=== PATIENT | male | born 1995 | race African-American/Black ===

== ENCOUNTER 2021-06-24 18:00 | Emergency (ER) | payer MEDICAID ==
[2021-06-24] VITALS (16 sets, daily range): BP systolic 95–123; BP diastolic 57–74
[~2021-06-24] VITALS: Ht 157.5 cm; Wt 38.0 kg
[2021-06-24 18:32] LABS: HEMATOCRIT 41.8 % (39.0-50.0); HEMOGLOBIN 12.3 g/dl (14.0-18.0); IMMATURE GRANULOCYTES 0.1 % (0.0-5.0); MEAN CELL VOLUME 91.5 fL CALC (80.0-100.0); MEAN CORPUSCULAR HGB 26.9 pG CALC (26.0-32.0); MEAN CORPUSCULAR HGB CONC 29.4 g/dL CAL (32.0-36.0); NEUT# 5.93 thou/uL (1.82-7.42); RED BLOOD COUNT 4.57 mill/uL (4.70-6.10); RED CELL DISTRI WIDTH 14.2 % (11.5-15.5)
[2021-06-24 19:00] LABS: ANION GAP 9 (6-22 (CALC)); BUN 18 mg/dL (9-20); BUN/CREATININE RATIO 36 (12-20 (CALC)); CHLORIDE 96 mmol/l (95-108); CREATININE 0.5 mg/dL (0.7-1.3); GFR > 60 ML/MIN (>=60 (CALC)); GFR FOR AFR.AMER. > 60 ML/MIN (>=60 (CALC)); POTASSIUM 4.4 mmol/l (3.5-5.1); SODIUM 140 mmol/l (137-146)
[2021-06-24 19:06] LABS: CARBON DIOXIDE 39 mmol/l (22-30)
[2021-06-24] MEDS ORDERED: NAPROXEN500 MG PO (21:31)
== END 2021-06-24 21:38 | disposition home or self-care (01) ==
LOC: ED 18:00 → EDBD 18:00 → ED 18:31
PROVIDERS: Family Medicine
DX: S83.014A Lateral dislocation of right patella, initial encounter (principal); J98.4 Other disorders of lung; X50.0XXA Overexertion from strenuous movement or load, initial encounter; Y93.41 Activity, dancing
CPT/HCPCS: L1830

== ENCOUNTER 2022-05-29 23:39 | Inpatient (IN) | payer MEDICAID ==
[~2022-05-29] VITALS: Ht 157.5 cm; Wt 40.0 kg
[~2022-05-29 23:39] MED LIST: NAPROXEN500 MG PO
[2022-05-29 23:45] VITALS: BP 120/76
[2022-05-30] VITALS (34 sets, daily range): BP systolic 82–136; BP diastolic 44–78
[2022-05-30 00:29] LABS: BASO% 0.3 % (0-3); EOS% 2.8 % (0-8); HEMATOCRIT 46.9 % (39.0-50.0); HEMOGLOBIN 13.5 g/dl (14.0-18.0); IMMATURE GRANULOCYTES 0.6 % (0.0-5.0); LYMPH% 12.7 % (15-41); MEAN CELL VOLUME 92.9 fL CALC (80.0-100.0); MEAN CORPUSCULAR HGB 26.7 pG CALC (26.0-32.0); MEAN CORPUSCULAR HGB CONC 28.8 g/dL CAL (32.0-36.0); MONO% 9.6 % (2-13); NEUT# 6.97 thou/uL (1.82-7.42); RED BLOOD COUNT 5.05 mill/uL (4.70-6.10); RED CELL DISTRI WIDTH 13.9 % (11.5-15.5)
[2022-05-30 00:43] LABS: ALBUMIN 4.7 g/dL (3.2-5.0); ALKALINE PHOSPHATASE 102 u/l (38-126); BUN 23 mg/dL (9-20); BUN/CREATININE RATIO 28 (12-20 (CALC)); CHLORIDE 90 mmol/l (95-108); CREATININE 0.8 mg/dL (0.7-1.3); GFR FOR AFR.AMER. > 60 ML/MIN (>=60 (CALC)); GFR OTHER RACES > 60 ML/MIN (>=60 (CALC)); POTASSIUM 4.7 mmol/l (3.5-5.1); SGOT/AST 51 u/l (17-59); SODIUM 140 mmol/l (137-146); TOTAL PROTEIN 7.7 g/dL (6.3-8.2)
[2022-05-30 00:52] LABS: ANION GAP 8 (6-22 (CALC)); CARBON DIOXIDE 47 mmol/l (22-30)
[2022-05-31 05:57] LABS: HEMATOCRIT 41.4 % (39.0-50.0); MEAN CORPUSCULAR HGB 26.7 pG CALC (26.0-32.0); RED BLOOD COUNT 4.5 mill/uL (4.70-6.10)
[2022-05-31 06:54] LABS: ALKALINE PHOSPHATASE 69 u/l (38-126); BUN 18 mg/dL (9-20); BUN/CREATININE RATIO 34 (12-20 (CALC)); CHLORIDE 94 mmol/l (95-108); CREATININE 0.5 mg/dL (0.7-1.3); GFR FOR AFR.AMER. > 60 ML/MIN (>=60 (CALC)); GFR OTHER RACES > 60 ML/MIN (>=60 (CALC)); POTASSIUM 4.8 mmol/l (3.5-5.1); SGOT/AST 66 u/l (17-59); SODIUM 136 mmol/l (137-146); TOTAL PROTEIN 6.6 g/dL (6.3-8.2)
[2022-05-31 07:10] LABS: ANION GAP 7 (6-22 (CALC)); BILIRUBIN, TOTAL 0.2 mg/dL (0.2-1.3)
[2022-05-31 07:11] LABS: CARBON DIOXIDE 40 mmol/l (22-30)
[2022-05-31 12:32] VITALS: BP 101/66
[2022-05-31 18:52] VITALS: BP 114/71
[2022-05-31 23:51] VITALS: BP 93/55
[2022-06-01 06:09] LABS: HEMATOCRIT 40.9 % (39.0-50.0); HEMOGLOBIN 12.2 g/dl (14.0-18.0); MEAN CELL VOLUME 89.9 fL CALC (80.0-100.0); MEAN CORPUSCULAR HGB 26.8 pG CALC (26.0-32.0); MEAN CORPUSCULAR HGB CONC 29.8 g/dL CAL (32.0-36.0); RED BLOOD COUNT 4.55 mill/uL (4.70-6.10); RED CELL DISTRI WIDTH 14.3 % (11.5-15.5)
[2022-06-01 06:26] LABS: ALKALINE PHOSPHATASE 57 u/l (38-126); BILIRUBIN, TOTAL 0.2 mg/dL (0.2-1.3); BUN 20 mg/dL (9-20); BUN/CREATININE RATIO 34 (12-20 (CALC)); CHLORIDE 92 mmol/l (95-108); CREATININE 0.6 mg/dL (0.7-1.3); GFR FOR AFR.AMER. > 60 ML/MIN (>=60 (CALC)); GFR OTHER RACES > 60 ML/MIN (>=60 (CALC)); MAGNESIUM 2.1 mg/dL (1.6-2.3); POTASSIUM 4.5 mmol/l (3.5-5.1); SGOT/AST 33 u/l (17-59); SODIUM 137 mmol/l (137-146); TOTAL PROTEIN 6.6 g/dL (6.3-8.2)
[2022-06-01 06:33] LABS: ANION GAP 11 (6-22 (CALC)); CARBON DIOXIDE 39 mmol/l (22-30)
[2022-06-01] MEDS ORDERED: PREDNISONE10 MG PO (10:02)
[2022-06-01] MEDS ORDERED: ZITHROMAX250 MG PO (10:02)
== END 2022-06-01 11:00 | disposition home or self-care (01) | DRG 208 ==
LOC: EDBD 23:39 → ED 23:39 → EDBD 23:49 → ED 23:49 → ED-I 23:49 → ED 05-30 01:29 → ED-I 05-30 01:30 → ICU 05-30 06:30
PROVIDERS: Emergency Medicine; Internal Medicine; ADMIT Internal Medicine; ATTEND Internal Medicine
PROC: 5A1945Z Respiratory Ventilation, 24-96 Consecutive Hours (ICD-10-PCS; principal; 2022-05-30)
DX: J96.21 Acute and chronic respiratory failure with hypoxia (principal); E87.29 Other acidosis; F84.0 Autistic disorder; G93.1 Anoxic brain damage, not elsewhere classified; Q21.12 Patent foramen ovale; J96.22 Acute and chronic respiratory failure with hypercapnia; J45.909 Unspecified asthma, uncomplicated; F79 Unspecified intellectual disabilities; Q33.8 Other congenital malformations of lung; Z93.1 Gastrostomy status; Z20.822 Contact with and (suspected) exposure to COVID-19

== ENCOUNTER 2022-06-18 22:35 | Observation (INO) | payer MEDICAID ==
[~2022-06-18] VITALS: Ht 157.5 cm; Wt 41.0 kg
[2022-06-18] VITALS (7 sets, daily range): BP systolic 47–125; BP diastolic 32–78
[~2022-06-18 22:35] MED LIST changes: +PREDNISONE10 MG PO; +ZITHROMAX250 MG PO
[2022-06-18 23:14] LABS: BASO% 0.3 % (0-3); HEMOGLOBIN 14.1 g/dl (14.0-18.0); IMMATURE GRANULOCYTES 0.1 % (0.0-5.0); LYMPH% 8.2 % (15-41); MEAN CELL VOLUME 91.9 fL CALC (80.0-100.0); MEAN CORPUSCULAR HGB 27.3 pG CALC (26.0-32.0); MEAN CORPUSCULAR HGB CONC 29.7 g/dL CAL (32.0-36.0); MONO% 9.4 % (2-13); NEUT# 7.38 thou/uL (1.82-7.42); RED BLOOD COUNT 5.16 mill/uL (4.70-6.10); RED CELL DISTRI WIDTH 14.3 % (11.5-15.5)
[2022-06-18 23:22] LABS: HEMATOCRIT 47.4 % (39.0-50.0)
[2022-06-18 23:27] LABS: ANION GAP 11 (6-22 (CALC)); BILIRUBIN, TOTAL 0.2 mg/dL (0.2-1.3); BUN 24 mg/dL (9-20); BUN/CREATININE RATIO 28 (12-20 (CALC)); CARBON DIOXIDE 37 mmol/l (22-30); CHLORIDE 96 mmol/l (95-108); CREATININE 0.9 mg/dL (0.7-1.3); GFR FOR AFR.AMER. > 60 ML/MIN (>=60 (CALC)); GFR OTHER RACES > 60 ML/MIN (>=60 (CALC)); POTASSIUM 4.4 mmol/l (3.5-5.1); SGOT/AST 51 u/l (17-59); SODIUM 139 mmol/l (137-146); TOTAL PROTEIN 7.9 g/dL (6.3-8.2)
[2022-06-18 23:29] LABS: ALBUMIN 4.9 g/dL (3.2-5.0); ALKALINE PHOSPHATASE 108 u/l (38-126)
[2022-06-19] VITALS (29 sets, daily range): BP systolic 56–111; BP diastolic 38–75
[2022-06-20 05:33] LABS: ALKALINE PHOSPHATASE 62 u/l (38-126); ANION GAP 6 (6-22 (CALC)); BILIRUBIN, TOTAL 0.7 mg/dL (0.2-1.3); BUN 18 mg/dL (9-20); BUN/CREATININE RATIO 36 (12-20 (CALC)); CARBON DIOXIDE 30 mmol/l (22-30); CHLORIDE 104 mmol/l (95-108); CREATININE 0.5 mg/dL (0.7-1.3); GFR FOR AFR.AMER. > 60 ML/MIN (>=60 (CALC)); GFR OTHER RACES > 60 ML/MIN (>=60 (CALC)); POTASSIUM 3.7 mmol/l (3.5-5.1); SGOT/AST 51 u/l (17-59); SODIUM 136 mmol/l (137-146); TOTAL PROTEIN 5.4 g/dL (6.3-8.2)
[2022-06-20 06:28] VITALS: BP 101/64
[2022-06-20 06:30] LABS: BASO% 0.4 % (0-3); HEMATOCRIT 43.5 % (39.0-50.0); HEMOGLOBIN 12.6 g/dl (14.0-18.0); IMMATURE GRANULOCYTES 0.1 % (0.0-5.0); LYMPH% 21.2 % (15-41); MEAN CELL VOLUME 91.8 fL CALC (80.0-100.0); MEAN CORPUSCULAR HGB 26.6 pG CALC (26.0-32.0); MONO% 8.5 % (2-13); NEUT# 7.25 thou/uL (1.82-7.42); NEUT% 68.8 % (42-76); RED BLOOD COUNT 4.74 mill/uL (4.70-6.10); RED CELL DISTRI WIDTH 14.3 % (11.5-15.5)
[2022-06-20 07:00] VITALS: BP 94/64
[2022-06-20 08:00] VITALS: BP 85/51
[2022-06-20 08:04] VITALS: BP 89/57
[2022-06-20 08:29] VITALS: BP 104/67
== END 2022-06-20 13:10 | disposition home or self-care (01) ==
LOC: ED 22:35 → ICU 23:57
PROVIDERS: Family Medicine; ADMIT Internal Medicine; ATTEND Internal Medicine
DX: J96.22 Acute and chronic respiratory failure with hypercapnia (principal); J96.21 Acute and chronic respiratory failure with hypoxia; F79 Unspecified intellectual disabilities; E87.29 Other acidosis; G93.1 Anoxic brain damage, not elsewhere classified; J45.909 Unspecified asthma, uncomplicated; F84.0 Autistic disorder; Q21.12 Patent foramen ovale; Z93.1 Gastrostomy status; Z20.822 Contact with and (suspected) exposure to COVID-19

== ENCOUNTER 2022-07-09 21:58 | Emergency (ER) | payer MEDICAID ==
[2022-07-09] VITALS (11 sets, daily range): BP systolic 93–117; BP diastolic 60–81
[~2022-07-09] VITALS: Ht 157.5 cm; Wt 37.0 kg
[2022-07-09 22:42] LABS: BASO% 0.4 % (0-3); EOS% 1.8 % (0-8); HEMATOCRIT 49.1 % (39.0-50.0); IMMATURE GRANULOCYTES 0.3 % (0.0-5.0); MEAN CORPUSCULAR HGB 27.1 pG CALC (26.0-32.0); MEAN CORPUSCULAR HGB CONC 28.5 g/dL CAL (32.0-36.0); MONO% 6.7 % (2-13); NEUT# 11.87 thou/uL (1.82-7.42); NEUT% 81.8 % (42-76); RED BLOOD COUNT 5.17 mill/uL (4.70-6.10); RED CELL DISTRI WIDTH 14.1 % (11.5-15.5)
[2022-07-09 22:53] LABS: ALKALINE PHOSPHATASE 89 u/l (38-126); BUN 21 mg/dL (9-20); BUN/CREATININE RATIO 24 (12-20 (CALC)); CHLORIDE 95 mmol/l (95-108); CREATININE 0.9 mg/dL (0.7-1.3); GFR FOR AFR.AMER. > 60 ML/MIN (>=60 (CALC)); GFR OTHER RACES > 60 ML/MIN (>=60 (CALC)); SGOT/AST 60 u/l (17-59); SODIUM 141 mmol/l (137-146)
[2022-07-09 22:54] LABS: ALBUMIN 4.2 g/dL (3.2-5.0); ANION GAP 12 (6-22 (CALC)); BILIRUBIN, TOTAL 0.3 mg/dL (0.2-1.3); CARBON DIOXIDE 39 mmol/l (22-30); POTASSIUM 4.9 mmol/l (3.5-5.1); TOTAL PROTEIN 6.8 g/dL (6.3-8.2)
[2022-07-09 23:42] LABS: URINE BILIRUBIN - DIPSTICK NEGATIVE (NEGATIVE); URINE BLOOD DIPSTICK TRACE-INTACT (NEGATIVE); URINE COLOR YELLOW; URINE GLUCOSE - DIPSTICK NEGATIVE (NEGATIVE); URINE KETONE NEGATIVE (NEGATIVE); URINE LEUK ESTERASE NEGATIVE (NEGATIVE); URINE PH 5.5 (4.5-8.0); URINE PROTEIN - DIPSTICK 100 mg/dL (NEG-TRACE); URINE SPECIFIC GRAVITY >=1.030; URINE UROBILINOGEN - DIPSTICK 0.2 E.U./dL (0.2)
[2022-07-09 23:49] LABS: URINE NITRITE - DIPSTICK NEGATIVE (Negative)
[2022-07-09 23:50] LABS: URINE BACTERIA FEW hpf; URINE EPITHELIAL CELLS MODERATE EPI/hpf (0-FEW); URINE MUCUS MODERATE hpf (NONE-FEW); URINE URIC ACID CRYSTALS FEW lpf
[2022-07-09 23:51] LABS: URINE AMORPH SEDIMENT FEW hpf (NONE-FER); URINE COARSE GRANULAR CAST FEW lpf; URINE FINE GRAN CAST FEW lpf
[2022-07-10] VITALS (22 sets, daily range): BP systolic 101–129; BP diastolic 67–91
== END 2022-07-10 02:03 | disposition short-term general hospital (02) ==
LOC: ED 21:58
PROVIDERS: Emergency Medicine
DX: J96.02 Acute respiratory failure with hypercapnia (principal); E87.29 Other acidosis; G93.1 Anoxic brain damage, not elsewhere classified; F84.0 Autistic disorder; Q21.12 Patent foramen ovale; J45.909 Unspecified asthma, uncomplicated; Z20.822 Contact with and (suspected) exposure to COVID-19

== ENCOUNTER 2022-09-10 17:29 | Inpatient (IN) | payer MEDICAID ==
[~2022-09-10] VITALS: Ht 157.5 cm; Wt 41.3 kg
[2022-09-10] VITALS (12 sets, daily range): BP systolic 88–140; BP diastolic 52–122
[2022-09-10 18:15] LABS: BASO% 0.4 % (0-3); EOS% 5.7 % (0-8); HEMATOCRIT 44.2 % (39.0-50.0); HEMOGLOBIN 12.7 g/dl (14.0-18.0); IMMATURE GRANULOCYTES 0.2 % (0.0-5.0); LYMPH% 14.6 % (15-41); MEAN CORPUSCULAR HGB CONC 28.7 g/dL CAL (32.0-36.0); MONO% 7.2 % (2-13); NEUT# 11.89 thou/uL (1.82-7.42); NEUT% 71.9 % (42-76); RED BLOOD COUNT 4.7 mill/uL (4.70-6.10); RED CELL DISTRI WIDTH 14.4 % (11.5-15.5)
[2022-09-10 18:29] LABS: ALBUMIN 4.6 g/dL (3.2-5.0); ALKALINE PHOSPHATASE 114 u/l (38-126); ANION GAP 14 (6-22 (CALC)); BILIRUBIN, TOTAL 0.3 mg/dL (0.2-1.3); BUN 17 mg/dL (9-20); BUN/CREATININE RATIO 21 (12-20 (CALC)); CARBON DIOXIDE 36 mmol/l (22-30); CHLORIDE 95 mmol/l (95-108); CREATININE 0.8 mg/dL (0.7-1.3); GFR FOR AFR.AMER. > 60 ML/MIN (>=60 (CALC)); GFR OTHER RACES > 60 ML/MIN (>=60 (CALC)); POTASSIUM 4.6 mmol/l (3.5-5.1); SGOT/AST 33 u/l (17-59); SODIUM 141 mmol/l (137-146)
[2022-09-10 18:30] LABS: TOTAL PROTEIN 8.4 g/dL (6.3-8.2)
[2022-09-11] VITALS (46 sets, daily range): BP systolic 55–134; BP diastolic 40–96
[2022-09-11 06:48] LABS: BASO% 0.2 % (0-3); HEMATOCRIT 38.6 % (39.0-50.0); HEMOGLOBIN 11.1 g/dl (14.0-18.0); IMMATURE GRANULOCYTES 0.1 % (0.0-5.0); LYMPH% 8.9 % (15-41); MEAN CELL VOLUME 95.1 fL CALC (80.0-100.0); MEAN CORPUSCULAR HGB 27.3 pG CALC (26.0-32.0); MEAN CORPUSCULAR HGB CONC 28.8 g/dL CAL (32.0-36.0); MONO% 3.6 % (2-13); NEUT# 7.59 thou/uL (1.82-7.42); NEUT% 87.2 % (42-76); RED BLOOD COUNT 4.06 mill/uL (4.70-6.10); RED CELL DISTRI WIDTH 14.4 % (11.5-15.5)
[2022-09-11 07:02] LABS: ALBUMIN 4.1 g/dL (3.2-5.0); ALKALINE PHOSPHATASE 66 u/l (38-126); BILIRUBIN, TOTAL 0.4 mg/dL (0.2-1.3); BUN 11 mg/dL (9-20); BUN/CREATININE RATIO 25 (12-20 (CALC)); CARBON DIOXIDE 38 mmol/l (22-30); CHLORIDE 95 mmol/l (95-108); CREATININE 0.4 mg/dL (0.7-1.3); GFR FOR AFR.AMER. > 60 ML/MIN (>=60 (CALC)); GFR OTHER RACES > 60 ML/MIN (>=60 (CALC)); SGOT/AST 35 u/l (17-59); SODIUM 138 mmol/l (137-146); TOTAL PROTEIN 7.9 g/dL (6.3-8.2)
[2022-09-11 07:03] LABS: ANION GAP 10 (6-22 (CALC)); POTASSIUM 5.2 mmol/l (3.5-5.1)
[2022-09-12] VITALS (73 sets, daily range): BP systolic 73–139; BP diastolic 41–95
[2022-09-13] VITALS (15 sets, daily range): BP systolic 81–133; BP diastolic 45–79
[2022-09-13 06:01] LABS: HEMATOCRIT 37.4 % (39.0-50.0); MEAN CELL VOLUME 92.1 fL CALC (80.0-100.0); MEAN CORPUSCULAR HGB 27.1 pG CALC (26.0-32.0); MEAN CORPUSCULAR HGB CONC 29.4 g/dL CAL (32.0-36.0); RED BLOOD COUNT 4.06 mill/uL (4.70-6.10); RED CELL DISTRI WIDTH 14.1 % (11.5-15.5)
[2022-09-13 06:17] LABS: ALBUMIN 3.9 g/dL (3.2-5.0); ALKALINE PHOSPHATASE 68 u/l (38-126); BILIRUBIN, TOTAL 0.5 mg/dL (0.2-1.3); BUN 21 mg/dL (9-20); BUN/CREATININE RATIO 34 (12-20 (CALC)); CHLORIDE 93 mmol/l (95-108); CREATININE 0.6 mg/dL (0.7-1.3); GFR FOR AFR.AMER. > 60 ML/MIN (>=60 (CALC)); GFR OTHER RACES > 60 ML/MIN (>=60 (CALC)); MAGNESIUM 1.9 mg/dL (1.6-2.3); POTASSIUM 4.3 mmol/l (3.5-5.1); SGOT/AST 28 u/l (17-59); SODIUM 139 mmol/l (137-146)
[2022-09-13 06:23] LABS: ANION GAP 12 (6-22 (CALC)); CARBON DIOXIDE 38 mmol/l (22-30)
[2022-09-13] MEDS ORDERED: PREDNISONE10 MG VT (09:30)
== END 2022-09-13 11:42 | disposition home or self-care (01) | DRG 208 ==
LOC: ED 17:29 → ED-I 19:12 → ICU 09-13 02:00
PROVIDERS: Family Medicine; Internal Medicine; ADMIT Internal Medicine; ATTEND Internal Medicine
PROC: 5A1945Z Respiratory Ventilation, 24-96 Consecutive Hours (ICD-10-PCS; principal; 2022-09-10)
DX: J96.22 Acute and chronic respiratory failure with hypercapnia (principal); F84.0 Autistic disorder; G93.1 Anoxic brain damage, not elsewhere classified; Q21.12 Patent foramen ovale; Z99.11 Dependence on respirator [ventilator] status; E87.4 Mixed disorder of acid-base balance; J96.21 Acute and chronic respiratory failure with hypoxia; J43.9 Emphysema, unspecified; Z93.0 Tracheostomy status; Z20.822 Contact with and (suspected) exposure to COVID-19

== ENCOUNTER 2022-10-11 11:34 | Emergency (ER) | payer MEDICAID ==
[~2022-10-11] VITALS: Ht 157.5 cm; Wt 42.2 kg
[~2022-10-11 11:34] MED LIST changes: +LEVALBUTER1.25 MG/3 IN; +MEDDOSEPAK PO; +PREDNISONE10 MG VT; +XANAX0.25 MG PO
[2022-10-11 11:47] VITALS: BP 140/86
[2022-10-11 12:00] VITALS: BP 134/83
[2022-10-11 12:15] VITALS: BP 133/83
[2022-10-11 12:30] VITALS: BP 133/83
== END 2022-10-11 12:37 | disposition home or self-care (01) ==
LOC: ED 11:34
DX: Z46.89 Encounter for fitting and adjustment of other specified devices (principal); J45.909 Unspecified asthma, uncomplicated; Q21.12 Patent foramen ovale

== ENCOUNTER 2023-03-07 20:28 | Emergency (ER) | payer MEDICAID ==
[2023-03-07] VITALS (9 sets, daily range): BP systolic 79–117; BP diastolic 42–72
[~2023-03-07] VITALS: Ht 157.5 cm; Wt 56.0 kg
[2023-03-07] MEDS ORDERED: LEVALBUTER1.25 MG/3 IN (21:06)
[2023-03-07 21:10] LABS: BASO% 0.3 % (0-3); EOS% 2.2 % (0-8); HEMATOCRIT 42.9 % (39.0-50.0); HEMOGLOBIN 12.7 g/dl (14.0-18.0); IMMATURE GRANULOCYTES 0.1 % (0.0-5.0); MEAN CELL VOLUME 88.1 fL CALC (80.0-100.0); MEAN CORPUSCULAR HGB 26.1 pG CALC (26.0-32.0); MEAN CORPUSCULAR HGB CONC 29.6 g/dL CAL (32.0-36.0); MONO% 13.8 % (2-13); NEUT# 11.69 thou/uL (1.82-7.42); NEUT% 76.6 % (42-76); RED BLOOD COUNT 4.87 mill/uL (4.70-6.10); RED CELL DISTRI WIDTH 15.7 % (11.5-15.5)
[2023-03-07] MEDS ORDERED: PULMICORT FLE180 MCG IN (21:10)
[2023-03-07] MEDS ORDERED: IPRATROPIU0.5 MG/3 M IN (21:10)
[2023-03-07] MEDS ORDERED: PREDNISONE10 MG PO (21:11)
[2023-03-07] MEDS ORDERED: ALPRAZOLAM0.25 MG PO (21:11)
== END 2023-03-07 22:46 | disposition home or self-care (01) ==
LOC: ED 20:28
PROVIDERS: Family Medicine
DX: R06.02 Shortness of breath (principal); Z43.0 Encounter for attention to tracheostomy; J45.909 Unspecified asthma, uncomplicated; Z99.11 Dependence on respirator [ventilator] status

== ENCOUNTER 2023-03-14 14:06 | Emergency (ER) | payer MEDICAID ==
[~2023-03-14] VITALS: Ht 157.5 cm; Wt 40.0 kg
[~2023-03-14 14:06] MED LIST changes: +ALPRAZOLAM0.25 MG PO; +IPRATROPIU0.5 MG/3 M IN; +PULMICORT FLE180 MCG IN
[2023-03-14 14:14] VITALS: BP 128/78
[2023-03-14 15:14] LABS: BASO% 0.3 % (0-3); EOS% 2.5 % (0-8); HEMATOCRIT 44.7 % (39.0-50.0); HEMOGLOBIN 13.1 g/dl (14.0-18.0); IMMATURE GRANULOCYTES 0.2 % (0.0-5.0); LYMPH% 8.7 % (15-41); MEAN CELL VOLUME 88.9 fL CALC (80.0-100.0); MEAN CORPUSCULAR HGB CONC 29.3 g/dL CAL (32.0-36.0); MONO% 9.2 % (2-13); NEUT# 9.32 thou/uL (1.82-7.42); NEUT% 79.1 % (42-76); RED BLOOD COUNT 5.03 mill/uL (4.70-6.10); RED CELL DISTRI WIDTH 15.8 % (11.5-15.5)
[2023-03-14 15:29] LABS: ALBUMIN 4.7 g/dL (3.2-5.0); ALKALINE PHOSPHATASE 78 u/l (38-126); BILIRUBIN, TOTAL 0.3 mg/dL (0.2-1.3); BUN 18 mg/dL (9-20); BUN/CREATININE RATIO 24 (12-20 (CALC)); CHLORIDE 96 mmol/l (95-108); CREATININE 0.8 mg/dL (0.7-1.3); GFR FOR AFR.AMER. > 60 ML/MIN (>=60 (CALC)); GFR OTHER RACES > 60 ML/MIN (>=60 (CALC)); POTASSIUM 4.7 mmol/l (3.5-5.1); SGOT/AST 42 u/l (17-59); SODIUM 143 mmol/l (137-146); TOTAL PROTEIN 8.5 g/dL (6.3-8.2)
[2023-03-14 15:35] LABS: ANION GAP 17 (6-22 (CALC)); CARBON DIOXIDE 35 mmol/l (22-30)
[2023-03-14 22:02] VITALS: BP 122/75
[2023-03-14 22:48] VITALS: BP 106/73
[2023-03-14 22:53] VITALS: BP 106/73
== END 2023-03-14 22:55 | disposition short-term general hospital (02) ==
LOC: ED 14:06
PROVIDERS: Nurse Practitioner
DX: J96.92 Respiratory failure, unspecified with hypercapnia (principal); F84.0 Autistic disorder; G93.1 Anoxic brain damage, not elsewhere classified; J96.11 Chronic respiratory failure with hypoxia; Z93.0 Tracheostomy status; Z99.11 Dependence on respirator [ventilator] status; Z20.822 Contact with and (suspected) exposure to COVID-19

== ENCOUNTER 2023-11-25 14:19 | Emergency (ER) | payer MEDICAID ==
[2023-11-25] VITALS (12 sets, daily range): BP systolic 55–152; BP diastolic 28–107
[~2023-11-25] VITALS: Ht 157.5 cm; Wt 40.8 kg
[2023-11-25] MEDS ORDERED: IPRATROPIUM-Albuterol 0.5MG-2.5MG/3 ML NEB ONE ×2 (14:40)
[2023-11-25] MEDS ORDERED: methylPREDNISolone SODIUM SUCC 125 MG/2 ML SDV IV ONE (14:45)
[2023-11-25 15:24] LABS: BASO% 0.6 % (0-3); HEMOGLOBIN 13.2 g/dl (14.0-18.0); IMMATURE GRANULOCYTES 0.2 % (0.0-5.0); LYMPH% 15.5 % (15-41); MEAN CELL VOLUME 91.1 fL CALC (80.0-100.0); MEAN CORPUSCULAR HGB 27.3 pG CALC (26.0-32.0); MONO% 8.4 % (2-13); NEUT# 4.31 thou/uL (1.82-7.42); NEUT% 68.3 % (42-76); RED BLOOD COUNT 4.83 mill/uL (4.70-6.10); RED CELL DISTRI WIDTH 13.6 % (11.5-15.5)
[2023-11-25 15:35] LABS: ALBUMIN 4.9 g/dL (3.2-5.0); CREATININE 0.9 mg/dL (0.7-1.3); TOTAL PROTEIN 8.3 g/dL (6.3-8.2)
[2023-11-25 15:42] LABS: BILIRUBIN, TOTAL 0.2 mg/dL (0.2-1.3)
== END 2023-11-25 17:34 | disposition home or self-care (01) ==
LOC: ED 14:19
PROVIDERS: Family Medicine
DX: J95.850 Mechanical complication of respirator (principal); J45.909 Unspecified asthma, uncomplicated; G93.1 Anoxic brain damage, not elsewhere classified; F84.0 Autistic disorder; J96.12 Chronic respiratory failure with hypercapnia; J96.11 Chronic respiratory failure with hypoxia; Q21.12 Patent foramen ovale; Y84.8 Other medical procedures as the cause of abnormal reaction of the patient, or of later complication, without mention of misadventure at the time of the procedure; Z93.0 Tracheostomy status; Z99.11 Dependence on respirator [ventilator] status; Z20.822 Contact with and (suspected) exposure to COVID-19

== ENCOUNTER 2024-04-17 21:41 | Inpatient (IN) | payer MEDICAID ==
[~2024-04-17] VITALS: Ht 152.4 cm; Wt 41.0 kg
[2024-04-17] MEDS ORDERED: IPRATROPIUM-Albuterol 0.5MG-2.5MG/3 ML NEB ONE (22:10)
--- NOTE | 2024-04-17 22:38 | NUR ---
LAB AT BEDSIDE COLLECTING BLOOD AND FLU SWAB. PATIENT IS SITTING IN TRIPOD AND HE IS DIAPHORETIC. UNABLE TO OBTAIN ABG, RESP COLLECTED VBG.
[2024-04-17 22:47] LABS: BASO% 0.4 % (0-3); EOS% 5.5 % (0-8); HEMATOCRIT 45.7 % (39.0-50.0); HEMOGLOBIN 13.1 g/dl (14.0-18.0); IMMATURE GRANULOCYTES 0.1 % (0.0-5.0); LYMPH% 19.4 % (15-41); MEAN CELL VOLUME 93.8 fL CALC (80.0-100.0); MEAN CORPUSCULAR HGB 26.9 pG CALC (26.0-32.0); MEAN CORPUSCULAR HGB CONC 28.7 g/dL CAL (32.0-36.0); MONO% 8.7 % (2-13); NEUT# 5.17 thou/uL (1.82-7.42); NEUT% 65.9 % (42-76); RED BLOOD COUNT 4.87 mill/uL (4.70-6.10); RED CELL DISTRI WIDTH 13.3 % (11.5-15.5)
[2024-04-17 22:59] VITALS: BP 98/80
[2024-04-17 23:16] VITALS: BP 48/30
[2024-04-17 23:22] VITALS: BP 86/57
--- NOTE | 2024-04-17 23:23 | NUR ---
PATIENT IS MORE RELAXED. SITTING BACK IN STRETCHER. WATCHING HIS IPAD. IV INITITATED IN RFA, 20G
[2024-04-17 23:30] VITALS: BP 104/66
[2024-04-17 23:44] VITALS: BP 82/44
[2024-04-17 23:50] LABS: ALBUMIN 4.9 g/dL (3.2-5.0); BILIRUBIN, TOTAL 0.2 mg/dL (0.2-1.3); CREATININE 0.6 mg/dL (0.7-1.3); POTASSIUM 4.8 mmol/l (3.5-5.1); TOTAL PROTEIN 8.9 g/dL (6.3-8.2)
[2024-04-18] VITALS (16 sets, daily range): BP systolic 72–124; BP diastolic 37–79
[2024-04-18] MEDS ORDERED: ONDANSETRON HCl 4 MG/2 ML SDV IV PRN (01:25)
[2024-04-18] MEDS ORDERED: ONDANSETRON 4 MG/TAB ODT PO PRN (01:25)
[2024-04-18] MEDS ORDERED: FAMOTIDINE 10MG/ML 2ML SDV IV PRN (01:25)
[2024-04-18] MEDS ORDERED: Polyethylene Glycol 3350 17 GM/PKT PO PRN (01:25)
[2024-04-18] MEDS ORDERED: IBUPROFEN 800 MG/TAB PO PRN (01:25)
[2024-04-18] MEDS ORDERED: ALUM & MAG HYDROX-SIMETHICONE 30 ML PO PRN ×2 (01:25→01:40)
[2024-04-18] MEDS ORDERED: traZODone HCL 50 MG/TAB PO ONE (02:20)
[2024-04-18] MEDS ORDERED: MIDAZOLAM HCL 2 MG/2 ML VIAL IV PRN (02:20)
--- NOTE | 2024-04-18 04:05 | NUR ---
ed md aware of bp. gave verbal order for ns bolus
[2024-04-18] MEDS ORDERED: SODIUM CHLORIDE 0.9% 1,000 ML IV ONE ×2 (04:07→04:10)
[2024-04-18] MEDS ORDERED: SODIUM CHLORIDE 20 ML/VIAL SDV IV ONE (04:10)
--- NOTE | 2024-04-18 05:10 | NUR ---
PATIENT IS SLEEPING AT THIS TIME. BP INCREASED WITH BOLUS.
--- NOTE | 2024-04-18 06:31 | NUR ---
PATIENT IS RESTING AT THIS TIME. NAD NOTED
--- NOTE | 2024-04-18 06:45 | NUR ---
Received report from [facility].
--- NOTE | 2024-04-18 07:40 | NUR ---
Reassessment of pt completed. Pt cleaned and resting at this time.
--- NOTE | 2024-04-18 08:00 | NUR ---
OMAR BROUGHT FOOD FROM HOME AND GAVE IT TO THE PT VIA PEG TUBE
--- NOTE | 2024-04-18 09:00 | NUR ---
Called to give report, nurse not available.
--- NOTE | 2024-04-18 09:51 | NUR ---
Report called to ICU [facility]
--- NOTE | 2024-04-18 10:10 | NUR ---
PT IS IN ROOM, BROUGHT UP BY TESS FROM ERLinden NELSON AT BEDSIDE. RT, CUSTOMER SPECIALIST AND MYSELF AT BEDSIDE.
--- NOTE | 2024-04-18 12:00 | NUR ---
PT IS SITTING IN BED WATCHING A TABLET. OMAR AT BEDSIDE.
[2024-04-18] MEDS ORDERED: BUDESONID2 IN (12:24)
[2024-04-18] MEDS ORDERED: BUDESONIDE 0.5 MG IN SCH (14:00)
[2024-04-18] MEDS ORDERED: LEVALBUTEROL HCL 1.25 MG/3 ML VIAL IN SCH (14:00)
--- NOTE | 2024-04-18 14:04 | NUR ---
PT IS IN BED, GRANDMA AT BEDSIDE. RT AT BEDSIDE. CALL LIGHT IN REACH.
--- NOTE | 2024-04-18 16:10 | NUR ---
PT IS SITTING IN BED WATCHING HIS TABLET. ELECTROLYSIST AT BEDSIDE. CALL LIGHT IN REACH.
--- NOTE | 2024-04-18 18:00 | NUR ---
PT WAS FEED BY HUNG VIA PEG TUBE WITH FEED FROM HOME.
--- NOTE | 2024-04-18 18:04 | NUR ---
PT IS LAYING IN BED WATCHING TV. GRANDMA AT BEDSIDE. CALL LIGHT IN REACH.
[2024-04-18] MEDS ORDERED: ALBUTEROL SUL0.083 % IN (19:25)
[2024-04-18] MEDS ORDERED: methylPREDNISolone Sod Succ 40 MG/ML SDV IV SCH (19:50)
[2024-04-18] MEDS ORDERED: IPRATROPIUM-Albuterol 0.5MG-2.5MG/3 ML NEB PRN (20:20)
[2024-04-18] MEDS ORDERED: DESYREL50 MG PO (20:59)
[2024-04-18] MEDS ORDERED: traZODone HCL 50 MG/TAB PO SCH (21:20)
--- NOTE | 2024-04-18 22:00 | NUR ---
PATIENT PROVIDED BED BATH AND LINEN CHANGE. PATIENT GIVEN TRAZODONE ORDERED ALONG WITH 240 mL OF WATER. VITAL SIGNS STABLE. NO ADDITIONAL CONCERNS AT THIS TIME. WILL CONTINUE WITH PLAN OF CARE. SOLUMEDROL ADMINISTERED IM, VERBAL ORDER RECEIVED FROM PROVIDER, PATIENT'S GRANDMOTHER IS REFUSING IV ACCESS AT THIS TIME.
[2024-04-19] VITALS (18 sets, daily range): BP systolic 77–147; BP diastolic 39–76
--- NOTE | 2024-04-19 | NUR ---
PATIENT APPEARS TO BE RESTING WITH EYES CLOSED. VSS. NO APPARENT DISTRESS NOTED. WILL CONTINUE WITH PLAN OF CARE.
--- NOTE | 2024-04-19 02:13 | NUR ---
RT AT BEDSIDE FOR NEB TX. PATIENT APPEARS TO BE RESTING WITH EYES CLOSED. VSS. NO APPARENT DISTRESS NOTED. WILL CONTINUE WITH PLAN OF CARE.
--- NOTE | 2024-04-19 03:59 | NUR ---
PATIENT APPEARS TO BE RESTING WITH EYES CLOSED. RISE AND FALL OF CHEST NOTED. NO APPARENT DISTRESS. WILL CONTINUE WITH PLAN OF CARE.
[2024-04-19 05:42] LABS: BASO% 0.2 % (0-3); EOS% 0.1 % (0-8); HEMOGLOBIN 11.3 g/dl (14.0-18.0); IMMATURE GRANULOCYTES 0.1 % (0.0-5.0); LYMPH% 9.1 % (15-41); MEAN CELL VOLUME 91.2 fL CALC (80.0-100.0); MEAN CORPUSCULAR HGB 26.8 pG CALC (26.0-32.0); MEAN CORPUSCULAR HGB CONC 29.4 g/dL CAL (32.0-36.0); NEUT# 7.96 thou/uL (1.82-7.42); NEUT% 88.5 % (42-76); RED BLOOD COUNT 4.22 mill/uL (4.70-6.10); RED CELL DISTRI WIDTH 13.4 % (11.5-15.5)
[2024-04-19 05:52] LABS: HEMATOCRIT 38.5 % (39.0-50.0)
--- NOTE | 2024-04-19 06:00 | NUR ---
PATIENT LYING IN BED WITH SHEET OVER HIS HEAD. RISE AND FALL OF CHEST NOTED. NO APPARENT DISTRESS. WILL CONTINUE WITH PLAN OF CARE.
[2024-04-19 06:15] LABS: CREATININE 0.6 mg/dL (0.7-1.3); POTASSIUM 4.5 mmol/l (3.5-5.1)
[2024-04-19 06:26] LABS: BILIRUBIN, TOTAL 0.3 mg/dL (0.2-1.3); TOTAL PROTEIN 6.6 g/dL (6.3-8.2)
--- NOTE | 2024-04-19 08:00 | NUR ---
PT IS AWAKE IN BED, CALL LIGHT IN REACH.
[2024-04-19] MEDS ORDERED: methylPREDNISolone Sod Succ 40 MG/ML SDV IM SCH ×2 (09:00→14:00)
--- NOTE | 2024-04-19 09:02 | NUR ---
DR. FREEMAN NOTIFIED OF ABG RESULTS.
--- NOTE | 2024-04-19 10:00 | NUR ---
PT IS BACK ON BIPAP. AWAKE IN BED WITH CALL LIGHT IN REACH.
--- NOTE | 2024-04-19 10:00 | NUR ---
PT IS SITTING UP IN BED WITH TABLET. OMAR IN ROOM
--- NOTE | 2024-04-19 12:00 | NUR ---
PT IS SITTING UP IN BED WITH TABLET. OMAR AT BEDSIDE. OMAR GAVE PEG TUBE FEED.
--- NOTE | 2024-04-19 12:00 | NUR ---
PT IS SLEEPING WITH BIPAP ON, EVEN AND UNLABORED RESOIATIONS. CALL LIGHT IN REACH.
--- NOTE | 2024-04-19 14:00 | NUR ---
PT IS SITTING IN BED WITH TABLET.
--- NOTE | 2024-04-19 14:00 | NUR ---
PT IS SLEEPING WITH BIPAP ON, WITH EVEN AND UNLABORED RESPIRATIONS. CALL LIGHT IN REACH.
[2024-04-19] MEDS ORDERED: ALBUTEROL SULFATE 2.5 MG VIAL IN SCH (15:00)
[2024-04-19] MEDS ORDERED: IPRATROPIUM-Albuterol 0.5MG-2.5MG/3 ML NEB SCH (15:00)
--- NOTE | 2024-04-19 16:00 | NUR ---
PT IS IN BED WITH HIS TABLET. PT HAS CURTAIN OPEN AND BED ALARM ON.
--- NOTE | 2024-04-19 18:00 | NUR ---
OMAR FED THE PT FOOD FROM HOME THROUGH THE PEG TUBE FOR BREAKFAST AND DINNER.
--- NOTE | 2024-04-19 18:04 | NUR ---
PT IS LAYING IN BED WATCHING TV.
--- NOTE | 2024-04-19 20:18 | NUR ---
PT ALERT, STAFF MUST ANTICIPATE NEEDS. AFEBRILE, B/P 107/60, HR120, SA02@93% VIA TRACH. [id number]%. MONITORED BY RT. ABDOMEN SOFT, NON-TENDER, PEG TUBE INTACT, PLACEMENT VERIFIED VIA AUSCULTATION, BSX4 ACTIVE,ABDOMEN SOFT, NON-TENDER. PT INC OF B&B, PERICARE AFTER EACH EPISODE. CALL LIGHT IN REACH, BED ALARM INTACT, WILL MONITOR.
--- NOTE | 2024-04-19 21:00 | NUR ---
PT FAMILY AT BEDSIDE, PT CONTINUES WITH TACH HR 120-130. NO DISTRESS NOTED IN PT. WILL MONITOR.
--- NOTE | 2024-04-19 22:15 | NUR ---
FAMILY LEFT UNIT. PT GIVEN COMPLETE BED BATH AND BED LINEN CHANGE, PT VOIDED, PERICARE PROVIDED AND BRIEF CHANGED. PT TOLERATED WELL. CONTINUES WITH TACHYCARDIA. MD NOTIFIED. CALL LIGHT IN REACH, WILL MONITOR
--- NOTE | 2024-04-19 22:19 | NUR ---
CONTACTED DR. BOYD ABOUT PATIENT'S ELEVATED HR. DISCUSSED HOLDING [address] [place], PROVIDER AGREED. WILL REASSES AT 0700. IF HR SUSTAINS > 140 - 150s CONTACT PROVIDER.
--- NOTE | 2024-04-19 23:44 | NUR ---
PT RESTING IN BED WITH EYES CLOSED, RESP EVEN/UNLABORED .TACHYCARDIA AT 120-130'S , NO DISTRESS NOTED. BED ALARM INTACT. WILL MONITOR.
[2024-04-20] VITALS (13 sets, daily range): BP systolic 86–114; BP diastolic 43–75
--- NOTE | 2024-04-20 00:03 | NUR ---
RT AT BEDSIDE PATIENT'S VENT ALARMING NEEDING O2 CALIBRATION. PATIENT CONTINUES TO REST WITH EYES CLOSED. RISE AND FALL OF CHEST NOTED. NO APPARENT DISTRESS NOTED. WILL CONTINUE WITH PLAN OF CARE TEMP 98.6
--- NOTE | 2024-04-20 02:20 | NUR ---
pt resting in bed with eyes closed, no distress noted. trach vent intact. will monitor
--- NOTE | 2024-04-20 03:35 | NUR ---
pt brief soiled with urine. good pericare provided, brief changed. pt tolerated well. no distress noted at this time. trach vent intact. sa02@93%. bed alarm intact, call light in reach. after care given pt pulled bed sheet over head and in resting calmly. pt remain tachy at 93-96bpm. will monitor.
[2024-04-20 05:39] LABS: HEMATOCRIT 35.6 % (39.0-50.0); HEMOGLOBIN 10.7 g/dl (14.0-18.0); MEAN CELL VOLUME 91.5 fL CALC (80.0-100.0); MEAN CORPUSCULAR HGB 27.5 pG CALC (26.0-32.0); MEAN CORPUSCULAR HGB CONC 30.1 g/dL CAL (32.0-36.0); RED BLOOD COUNT 3.89 mill/uL (4.70-6.10); RED CELL DISTRI WIDTH 13.7 % (11.5-15.5)
[2024-04-20 05:50] LABS: ALBUMIN 4.1 g/dL (3.2-5.0); BILIRUBIN, TOTAL 0.3 mg/dL (0.2-1.3); CREATININE 0.6 mg/dL (0.7-1.3); MAGNESIUM 2.1 mg/dL (1.6-2.3); POTASSIUM 4.4 mmol/l (3.5-5.1); TOTAL PROTEIN 6.8 g/dL (6.3-8.2)
--- NOTE | 2024-04-20 06:49 | NUR ---
PT SOILED BRIEF CHANGED, GOOD LALA CARE PROVIDED. PT TOLERATED WELL. TRACH/VENT REMAINS IN PLACE. SA02@93. BED ALARM IN PLACE. CALL LIGHT IN REACH. WILL MONITOR.
--- NOTE | 2024-04-20 07:10 | NUR ---
0650 ABG ATTEMPTED WITH DAY SHIFT RT. UNABLE TO OBTAIN DUE TO HYPERACTIVITY AND THROWING OF OBJECT, PRESENTING POTENTIAL DANGER TO STAFF AND PATIENT. RN NOTIFIED.
--- NOTE | 2024-04-20 08:00 | NUR ---
PT IS SITTING IN BED. BED ALARM ON.
[2024-04-20] MEDS ORDERED: PANTOPRAZOLE SODIUM Sesquihydr 40 MG/TAB PO SCH (09:00)
--- NOTE | 2024-04-20 10:00 | NUR ---
PT IS IN BED. OMAR AT THE BEDSIDE.
--- NOTE | 2024-04-20 12:00 | NUR ---
PT IS SITTING IN BED WITH GRANDMA AT THE BEDSIDE. OXYGEN SATURATION HAS DROPPED TO 90. RT CALLED.
--- NOTE | 2024-04-20 12:05 | NUR ---
PT OXYGEN SATURATION DROPPED TO 88. DR. BOYD NOTIFIED, RT ON THEIR WAY FOR BREATHING TREATMENT.
--- NOTE | 2024-04-20 14:11 | NUR ---
PT IS AWAKE IN BED ON HIS TABLET, BED ALARM ON AND CURTAIN OPEN.
--- NOTE | 2024-04-20 16:00 | NUR ---
PT IS IN BED ON TABLET. BED ALARM ON AND CURTAIN OPEN.
--- NOTE | 2024-04-20 16:00 | NUR ---
OMAR PORTILLO, STATED SHE DID NOT WANT LOVENOX OR PROTONIX GIVEN. DR. OLIVER MAYEN.
--- NOTE | 2024-04-20 17:56 | NUR ---
PT IS SITTING IN BED WITH HIS TABLET. BED ALRM ON AN DCURTAIN OPEN.
--- NOTE | 2024-04-20 18:00 | NUR ---
PT GRANDMA FED HIM BREAKFAST AND LUNCH THROUGH THE PEG TUBE, FOOD WAS BROUGHT FROM HOME.
--- NOTE | 2024-04-20 20:00 | NUR ---
PATIENT LYING IN BED. GRANDMOTHER AT BEDSIDE. ASSESSMENT COMPLETED. LUNG WHEEZES/DIMINISHED TO ASCULTATION. BREATHING ASSISTED ON VENTILATOR. VENT SETTINGS FOLLOWS: TV 400 RR 22 FIO2 35 PEEP 5 PATIENT'S GRANDMOTHER EDUCATED ON PROVIDER ORDERS AND NURSING STAFF ADHERING TO ORDERS. VSS. NO APPARENT DISTRESS NOTED. BED LOCKED AND IN LOW POSITION. BED ALARM ON. WILL CONTINUE WITH PLAN OF CARE.
[2024-04-20] MEDS ORDERED: ENOXAPARIN SODIUM 40 MG/0.4 ML SYR SC SCH (21:00)
--- NOTE | 2024-04-20 22:00 | NUR ---
PATIENT PROVIDED COMPLETE BED BATH AND LINEN CHANGE. ORAL CARE PROVIDED. PATIENT SETTLED IN BED. VSS. NO APPARENT DISTRESS NOTED. WILL CONTINUE WITH PLNAN OF CARE.
[2024-04-21] VITALS (10 sets, daily range): BP systolic 40–116; BP diastolic 25–72
--- NOTE | 2024-04-21 00:11 | NUR ---
PATIENT APPEARS TO BE RESTING WITH EYES CLOSED. RISE AND FALL OF CHEST NOTED. NO APPARENT DISTRESS. WILL CONTINUE WITH PLAN OF CARE.
--- NOTE | 2024-04-21 01:55 | NUR ---
PATIENT APPEARS TO BE RESTING. RISE AND FALL OF CHEST NOTED.SR ON THE MONITOR/ NO APPARENT DISTRESS NOTED. WILL CONTINUE WITH PLAN OF CARE.
--- NOTE | 2024-04-21 03:30 | NUR ---
PATIENT NOTED TO HAVE BRIEF SOILED WITH URINE. PATIENT CLEANED AND PROVIDED NEW BRIEF. TEMP 98.2. VSS. WILL CONTINUE WITH PLAN OF CARE.
[2024-04-21 05:52] LABS: ALBUMIN 4.2 g/dL (3.2-5.0); BILIRUBIN, TOTAL 0.4 mg/dL (0.2-1.3); CREATININE 0.6 mg/dL (0.7-1.3); POTASSIUM 4.1 mmol/l (3.5-5.1)
[2024-04-21 05:53] LABS: BASO% 0.2 % (0-3); HEMATOCRIT 38.9 % (39.0-50.0); HEMOGLOBIN 11.7 g/dl (14.0-18.0); IMMATURE GRANULOCYTES 0.1 % (0.0-5.0); MEAN CELL VOLUME 91.1 fL CALC (80.0-100.0); MEAN CORPUSCULAR HGB 27.4 pG CALC (26.0-32.0); MEAN CORPUSCULAR HGB CONC 30.1 g/dL CAL (32.0-36.0); MONO% 6.5 % (2-13); NEUT# 7.19 thou/uL (1.82-7.42); NEUT% 81.2 % (42-76); RED BLOOD COUNT 4.27 mill/uL (4.70-6.10); RED CELL DISTRI WIDTH 13.9 % (11.5-15.5)
--- NOTE | 2024-04-21 05:54 | NUR ---
PATIENT SITTING UP IN BED RESTING. SB ON THE MONITOR. PATIENT NOTED TO BE SATURATED WITH URINE, CLEANED AND PROVIDED FRESH BRIEF. NO ADDITIIONAL CONCERNS AT THIS TIME. WILL CONTINUE WITH PLAN OF CARE.
--- NOTE | 2024-04-21 08:00 | NUR ---
PT IS SITTING IN BED WITH OMAR LUNA AT BEDSIDE. OMAR GAVE MORNING FEED THAT SHE BROUGHT FROM HOME THROUGH THE PEG TUBE.
--- NOTE | 2024-04-21 10:00 | NUR ---
PT IS SITTING IN HIS BED. BED ALARM ON AND CURTAIN OPEN.
--- NOTE | 2024-04-21 12:00 | NUR ---
PT IS AWAKE IN BED WATCHING THE TABLET. BED ALARM ON AND CUTAIN OPEN
--- NOTE | 2024-04-21 14:00 | NUR ---
PT IS AWAKE IN BED, GRANDMA AT BEDSIDE. GRANDMA HAS CALL LIGHT IN REACH. BED ALARM ON. GRANDMA GAVE HOME FEED FOR LUNCH THROUGH THE PEG TUBE.
--- NOTE | 2024-04-21 16:07 | NUR ---
PT IS IN BED AWAKE WT BED ALARM ON AND CURTAIN OPEN.
--- NOTE | 2024-04-21 17:36 | NUR ---
OMAR IS AT BEDSIDE
--- NOTE | 2024-04-21 18:00 | NUR ---
PT IS ON HIS TABLET IN BED. BED ALARM ON AND CURTAIN OPEN.
--- NOTE | 2024-04-21 20:57 | NUR ---
SPOKE WITH PATIENT'S GRANDMOTHER ON THE PHONE. REQUESTED THAT CANNULA NEAR PATIENT'S SINK "SOAK OVERNIGHT UNTIL I GET THERE TO CHANGE IT". ADDITIONALLY, REQUESED THAT PATIENT RECEIVE 240 mL OF WATER AT THIS TIME AND PRIOR TO BED. THIS LEAD JAVA PROGRAMMER VERBALIZED UNDERSTANDING.
[2024-04-21] MEDS ORDERED: methylPREDNISolone Sod Succ 40 MG/ML SDV IM SCH (21:00)
--- NOTE | 2024-04-21 21:55 | NUR ---
RT AT BEDSIDE FOR [facility] TX. PATIENT PLAYING ON IPAD. NO APPARENT DISTRESS NOTED. WILL CONTINUE WITH PLAN OF CARE.
[2024-04-22] VITALS (11 sets, daily range): BP systolic 74–108; BP diastolic 29–68
--- NOTE | 2024-04-22 | NUR ---
PATIENT APPEARS TO BE RESTING WITH EYES CLOSED. VSS. NO APPARENT DISTRESS NOTED. WILL CONTINUE WITH PLAN OF CARE.
--- NOTE | 2024-04-22 02:00 | NUR ---
PATIENT APPEARS TO BE RESTING WITH EYES CLOSED. RISE AND FALL OF CHEST NOTED. NO APPARENT DISTRESS. WILL CONTINUE WITH PLAN OF CARE.
--- NOTE | 2024-04-22 04:00 | NUR ---
PATIENT SITTING UP IN BED. VSS. NO APPARENT DISTRESS NOTED. WILL CONTINUE WITH PLAN OF CARE.
[2024-04-22 05:28] LABS: BASO% 0.1 % (0-3); EOS% 0.1 % (0-8); IMMATURE GRANULOCYTES 0.2 % (0.0-5.0); LYMPH% 7.5 % (15-41); MEAN CELL VOLUME 90.7 fL CALC (80.0-100.0); MEAN CORPUSCULAR HGB 27.2 pG CALC (26.0-32.0); MONO% 2.9 % (2-13); NEUT# 8.96 thou/uL (1.82-7.42); NEUT% 89.2 % (42-76); RED BLOOD COUNT 4.41 mill/uL (4.70-6.10); RED CELL DISTRI WIDTH 13.8 % (11.5-15.5)
[2024-04-22 05:33] LABS: ALBUMIN 4.3 g/dL (3.2-5.0); BILIRUBIN, TOTAL 0.4 mg/dL (0.2-1.3); CREATININE 0.6 mg/dL (0.7-1.3); POTASSIUM 4.2 mmol/l (3.5-5.1); TOTAL PROTEIN 7.1 g/dL (6.3-8.2)
--- NOTE | 2024-04-22 06:00 | NUR ---
PATIENT NOTED TO BE SOILED. BRIEF CHANGED. NO ADDITIONAL CONCERNS. VSS. WILL CONTINUE WITH PLAN OF CARE.
[2024-04-22] MEDS ORDERED: PREDNISONE10 MG PO (07:15)
--- NOTE | 2024-04-22 08:00 | NUR ---
PT IS SITTING IN BED, WITH TABLET. BED ALARM ON AND CURTAIN OPEN.
--- NOTE | 2024-04-22 09:30 | NUR ---
CALLED OMAR PORTILLO, SHE STATED SHE IS ON HER WAY AND WILL BE HERE IN 30 MINUTES
--- NOTE | 2024-04-22 10:00 | NUR ---
PT IS SITTING IN BED, GRANDMA IS CURRENTLY FEEDING HIM THROUGH THE PEG TUBE WITH FOOD FROM HOME.
--- NOTE | 2024-04-22 10:44 | NUR ---
Discharge instructions given. Patient verbalizes understanding of same. Discharged in stable condition via Wheelchair to Home with staff. All belongings sent with pt. TELEMETRY REMOVED.
== END 2024-04-22 10:44 | disposition home or self-care (01) | DRG 207 ==
LOC: ED 21:41 → ED-I 04-18 01:10 → ED 04-18 01:24 → ICU 04-18 01:25
PROVIDERS: Internal Medicine; ADMIT Internal Medicine; ATTEND Internal Medicine
PROC: 5A1955Z Respiratory Ventilation, Greater than 96 Consecutive Hours (ICD-10-PCS; principal; 2024-04-17)
DX: J96.22 Acute and chronic respiratory failure with hypercapnia (principal); Z99.11 Dependence on respirator [ventilator] status; E87.29 Other acidosis; G93.1 Anoxic brain damage, not elsewhere classified; Q21.12 Patent foramen ovale; F84.0 Autistic disorder; J45.51 Severe persistent asthma with (acute) exacerbation; J96.21 Acute and chronic respiratory failure with hypoxia; Z93.0 Tracheostomy status; Z93.1 Gastrostomy status
CPT/HCPCS: J1100